=== PATIENT | female | born 1980 | race Caucasian/White ===

== ENCOUNTER 2019-01-21 16:15 | Inpatient (IN) ==
[2019-01-21] MEDS ORDERED: Isovue-370 500 ML BOTTLE IVP ONE (16:31)
--- NOTE | 2019-01-21 16:35 | Emergency Department Note ---
Disposition Clinical Impression: Acute anxiety Depression Qualifiers: Depression Type: other depression Qualified Code(s): F32.89 - Other specified depressive episodes Disposition: Admitted As Inpatient Condition: Fair Time of Disposition: 19:24 Psych HPI - General Stated Complaint: sent by 1A Time Seen by Provider: 01/21/19 16:19 Source: patient, other (Family) Mode of arrival: private vehicle Limitations: no limitations Nursing Notes Reviewed: Yes Vital Signs Reviewed: Yes - History of Present Illness HPI Narrative: Patient is tearful, depressed, anxious and "obsessed" over a recent chest x-ray showing groundglass opacities versus infiltrate. She is concerned about "swelling in my neck" that "popped up several weeks ago" and that might be malignant. She has been seen at [facility]'s emergency department and by her primary care provider and given reassurance. She contacted her friend today and explained her anxiety she was instructed to come to the emergency department. Patient requests a mental health consultation. Pt complaint: anxiety Onset (ago): week(s) Duration: intermittent History of similar episodes: No Improves with: none Worsens with: none Alleged intoxication: No Associated Psychiatric Symptoms: depression, anxiety Associated symptoms: Reports: other ("Swelling" in neck) Traumatic symptoms: denies traumatic injury Treatments prior to arrival: other All systems ED: reviewed and negative except as stated. Constitutional: Reports: as per HPI Eyes: Reports: as per HPI ENT ED: Reports: as per HPI Cardiovascular: Reports: as per HPI Respiratory: Reports: as per HPI Gastrointestinal: Reports: as per HPI Genitourinary: Reports: as per HPI Musculoskeletal: Reports: as per HPI Integumentary: Reports: as per HPI Neurological: Reports: as per HPI Psychiatric: Reports: anxiety, depression Endocrine: Reports: as per HPI Hematological/Lymphatic: Reports: lymphadenopathy Allergic/Immunologic: Reports: as per HPI Past Medical History - Past Medical History Source: patient - Social History Smoking Status: Current every day smoker Drug use: Reports: none Physical Exam tearful - General Limitations: no limitations General appearance: alert - Head Head exam: atraumatic - Eye Eye exam: Present: normal appearance - ENT ENT exam: normal exam - Neck Neck exam: Present: normal inspection, lymphadenopathy (right sided supraclavicular swelling) - Chest Chest inspection: Present: normal inspection, symmetric chest wall rise - Respiratory Respiratory exam: Present: normal lung sounds bilaterally - Cardiovascular Cardiovascular exam: Present: regular rate, normal rhythm - Rectal Exam Rectal exam: Present: deferred - Extremities Exam Extremities exam: Present: normal inspection - Neurological Exam Neurological exam: Present: alert, oriented X3, CN II-XII intact - Psychiatric Psychiatric exam: Present: anxious - Skin Skin exam: Present: warm, dry, intact Course Course Narrative: patient to ED feeling anxious. she is overly concerned about her "neck swelling." I did review the transcribed report of her CT neck and the transcribed report of her chest x-ray. I will offered further medical evaluation with a contrast-enhanced CT scan of her chest. I will attempt to clear her medically for mental health consultation Vital Signs Temperature 97.8 F 01/21/19 16:50 Pulse Rate 97 01/21/19 16:50 Respiratory Rate 18 01/21/19 16:50 Blood Pressure 149/89 01/21/19 16:50 O2 Sat by Pulse Oximetry 97 01/21/19 16:50 Temperature 97.8 F 01/21/19 16:50 Pulse Rate 97 01/21/19 16:50 Respiratory Rate 18 01/21/19 16:50 Blood Pressure 149/89 01/21/19 16:50 O2 Sat by Pulse Oximetry 97 01/21/19 16:50 Oxygen Delivery Oxygen Delivery Room Air Psych - Lab Data Result diagrams: 01/21/19 16:39 01/21/19 16:39 Lab Results 01/21/19 01/21/19 01/21/19 Range/Units 16:34 16:34 16:39 WBC 11.2 H (4.3-11.1) K/mcL RBC 4.61 (3.82-4.97) M/mcL Hgb 13.7 (11.5-15.4) g/dL Hct 42.1 (35.3-44.9) % MCV 91.3 (83.0-100.0) fL MCH 29.7 (28.0-33.3) pg MCHC 32.5 (31.6-35.5) g/dL RDW 13.2 (11.5-14.5) % Plt Count 425 H (140-400) K/mcL MPV 8.4 L (9.4-12.4) fL Immature Gran % 0.3 (0-4) % Seg Neutrophils % 67.4 % Lymphocytes % 24.0 % Monocytes % 5.6 % Eosinophils % 2.1 % Basophils % 0.6 % Neutrophils # 7.6 (1.6-8.9) K/mcL Lymphocytes # 2.7 (0.6-4.6) K/mcL Monocytes # 0.6 (0.0-1.3) K/mcL Eosinophils # 0.2 (0.0-0.6) K/mcL Basophils # 0.1 (0.0-0.2) K/mcL Sodium (136-145) mEq/L Potassium (3.5-5.1) mEq/L Chloride (98-107) mEq/L Carbon Dioxide (23-29) mEq/L BUN (6-20) mg/dL Creatinine (0.60-1.20) mg/dL Est GFR ( Amer) (> 60) Est GFR (Non-Af Amer) (> 60) BUN/Creatinine Ratio (6-26) Glucose (70-105) mg/dL Calculated Osmolality (280-300) Calcium (8.6-10.3) mg/dL Urine Test Negative (Negative) Salicylates (15.0-30.0) mg/dL Urine Opiates Screen Negative (Jzkzdh=838) ng/mL Ur Buprenorphine Scrn Negative (Cutoff=5) ng/mL Acetaminophen (10-20) mcg/mL Ur Barbiturates Screen Negative (Sbunqv=129) ng/mL Ur Phencyclidine Scrn Negative (Cutoff=25) ng/mL Ur Amphetamines Screen Negative (Dtbwnh=8996) ng/mL U Benzodiazepines Scrn Negative (Hqormm=043) ng/mL Urine Cocaine Screen Negative (Cutoff= 300) ng/mL U Marijuana (THC) Screen Negative (Cutoff = 50) ng/mL Ur Drug Screen Interp See Below Ethyl Alcohol (Less than 10) mg/dL 01/21/19 Range/Units 16:39 WBC (4.3-11.1) K/mcL RBC (3.82-4.97) M/mcL Hgb (11.5-15.4) g/dL Hct (35.3-44.9) % MCV (83.0-100.0) fL MCH (28.0-33.3) pg MCHC (31.6-35.5) g/dL RDW (11.5-14.5) % Plt Count (140-400) K/mcL MPV (9.4-12.4) fL Immature Gran % (0-4) % Seg Neutrophils % % Lymphocytes % % Monocytes % % Eosinophils % % Basophils % % Neutrophils # (1.6-8.9) K/mcL Lymphocytes # (0.6-4.6) K/mcL Monocytes # (0.0-1.3) K/mcL Eosinophils # (0.0-0.6) K/mcL Basophils # (0.0-0.2) K/mcL Sodium 138 (136-145) mEq/L Potassium 3.6 (3.5-5.1) mEq/L Chloride 100 (98-107) mEq/L Carbon Dioxide 25 (23-29) mEq/L BUN 9 (6-20) mg/dL Creatinine 0.79 (0.60-1.20) mg/dL Est GFR ( Amer) > 60 (> 60) Est GFR (Non-Af Amer) > 60 (> 60) BUN/Creatinine Ratio 11 (6-26) Glucose 113 H (70-105) mg/dL Calculated Osmolality 285 (280-300) Calcium 10.1 (8.6-10.3) mg/dL Urine Test (Negative) Salicylates < 2.5 L (15.0-30.0) mg/dL Urine Opiates Screen (Sczlor=158) ng/mL Ur Buprenorphine Scrn (Cutoff=5) ng/mL Acetaminophen < 10 L (10-20) mcg/mL Ur Barbiturates Screen (Ubhmde=276) ng/mL Ur Phencyclidine Scrn (Cutoff=25) ng/mL Ur Amphetamines Screen (Gdqgrq=7175) ng/mL U Benzodiazepines Scrn (Nyyhvk=325) ng/mL Urine Cocaine Screen (Cutoff= 300) ng/mL U Marijuana (THC) Screen (Cutoff = 50) ng/mL Ur Drug Screen Interp Ethyl Alcohol < 10 (Less than 10) mg/dL Psychiatric Medical Clearance - Medical Clearance Checklist Medical History: No Social History Section defined Current Vitals: Last Vital Signs Temp 97.8 F 01/21/19 16:50 Pulse 97 01/21/19 16:50 Resp 18 01/21/19 16:50 BP 149/89 01/21/19 16:50 Pulse Ox 97 01/21/19 16:50 Psychiatric Lab Panel: Drug Levels and Toxicity 01/21/19 01/21/19 16:34 16:39 Urine Opiates Screen Negative Acetaminophen < 10 L Ur Barbiturates Screen Negative Ur Phencyclidine Scrn Negative Ur Amphetamines Screen Negative U Benzodiazepines Scrn Negative Urine Cocaine Screen Negative U Marijuana (THC) Screen Negative Ethyl Alcohol < 10 Abnormal Labs: Abnormal lab results WBC 11.2 K/mcL (4.3-11.1) H 01/21/19 16:39 Plt Count 425 K/mcL (140-400) H 01/21/19 16:39 MPV 8.4 fL (9.4-12.4) L 01/21/19 16:39 Glucose 113 mg/dL (70-105) H 01/21/19 16:39 Salicylates < 2.5 mg/dL (15.0-30.0) L 01/21/19 16:39 Acetaminophen < 10 mcg/mL (10-20) L 01/21/19 16:39 Statement of Medical Clearance: I have evaluated the patient, reviewed diagnostic information, and certify that the patient's medical condition is sufficiently stable that transfer to the psychiatric unit does not pose a significant risk of deterioration.
[2019-01-21 16:52] LABS: Basophils # 0.1 K/mcL (0.0-0.2); Basophils % 0.6 %; Eosinophils # 0.2 K/mcL (0.0-0.6); Eosinophils % 2.1 %; Hematocrit 42.1 % (35.3-44.9); Hemoglobin 13.7 g/dL (11.5-15.4); Immature Granulocytes % 0.3 % (0-4); Lymphocytes # 2.7 K/mcL (0.6-4.6); Mean Corpuscular HGB Conc 32.5 g/dL (31.6-35.5); Mean Corpuscular Hemoglobin 29.7 pg (28.0-33.3); Mean Corpuscular Volume 91.3 fL (83.0-100.0); Mean Platelet Volume 8.4 fL (9.4-12.4); Monocytes # 0.6 K/mcL (0.0-1.3); Monocytes % 5.6 %; Neutrophils # 7.6 K/mcL (1.6-8.9); Platelet Count 425 K/mcL (140-400); Red Blood Count 4.61 M/mcL (3.82-4.97); Red Cell Distribution Width 13.2 % (11.5-14.5); Segmented Neutrophils % 67.4 %; White Blood Count 11.2 K/mcL (4.3-11.1)
[2019-01-21 16:53] LABS: Amphetamine Screen,Urine Negative ng/mL (Cutoff=1000); Barbiturate Screen,Urine Negative ng/mL (Cutoff=200); Benzodiazepines Screen,Urine Negative ng/mL (Cutoff=200); Cannabinoid Screen,Urine Negative ng/mL (Cutoff = 50); Cocaine Screen,Urine Negative ng/mL (Cutoff= 300); Opiate Screen,Urine Negative ng/mL (Cutoff=300); Phencyclidine Screen,Urine Negative ng/mL (Cutoff=25)
[2019-01-21 17:12] LABS: Acetaminophen < 10 mcg/mL (10-20); BUN/Creatinine Ratio 11 (6-26); Blood Urea Nitrogen 9 mg/dL (6-20); Calcium 10.1 mg/dL (8.6-10.3); Carbon Dioxide 25 mEq/L (23-29); Chloride 100 mEq/L (98-107); Ethanol < 10 mg/dL (Less than 10); Glucose 113 mg/dL (70-105); Osmolality,Calculated 285 (280-300); Potassium 3.6 mEq/L (3.5-5.1); Salicylate < 2.5 mg/dL (15.0-30.0); Sodium 138 mEq/L (136-145); eGFR For African Americans > 60 (> 60); eGFR For Non-African Americans > 60 (> 60)
[2019-01-21] MEDS ORDERED: Haloperidol Lactate 5 MG/ML VIAL IM PRN (19:52)
[2019-01-21] MEDS ORDERED: hydrOXYzine pamoate 25 MG CAPSULE PO PRN (19:52)
[2019-01-21] MEDS ORDERED: MOM Conc 10 ML UD.LIQ PO PRN (19:52)
[2019-01-21] MEDS ORDERED: *HR* LORazepam 2 MG/ML VIAL IM PRN (19:52)
[2019-01-21] MEDS ORDERED: Mag Hydrox/Al Hydrox/Simeth 30 ML UDC PO PRN (19:52)
[2019-01-21] MEDS ORDERED: *HR* LORazepam 1 MG TABLET PO PRN (19:52)
[2019-01-21] MEDS ORDERED: traZODone 50 MG TABLET PO PRN (19:52)
[2019-01-21] MEDS: Ibuprofen 400 MG TABLET PO PRN (21:39)
[2019-01-22] MEDS: Nicotine 2 MG GUM BC PRN ×2 (07:36→17:24)
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
[2019-01-22] MEDS: clonazePAM 1 MG TABLET PO SCH (09:40)
[2019-01-22] MEDS: Ibuprofen 400 MG TABLET PO PRN ×2 (10:13→21:02)
--- NOTE | 2019-01-23 08:42 | Psychiatry Progress Note ---
Date of Encounter: 01/23/19 Time of Encounter: 08:00 Subjective Interval history: Patient had some stomach cramps yesterday. She is unsure if it is related to the medication changes however she also had some salad which has previously bothered other patients. She reports ongoing anxiety and obsessive thinking. She said that she read the PDR for the new medication which she maintained speech should not have because she said that she then dwelled on the possible side effects. She said she misses her children. She denies suicidal or homicidal thoughts ideations or plans. Review of Systems Psychiatric: Reports: depression, anxiety, abnormal sleep pattern, anhedonia Results - Vital Signs Vital Signs: Temp Pulse Resp BP Pulse Ox 98.6 F 71 16 138/76 99 01/22/19 20:36 01/22/19 20:36 01/22/19 20:36 01/22/19 20:36 01/22/19 20:36 - Impressions ITS Impressions Chest CT 01/21/19 16:31 IMPRESSION: 1. No acute cardiopulmonary process. 2. No mediastinal masses or supraclavicular masses are identified to explain the clinical symptoms. No abnormality is seen causing mass effect on the SVC. D/ / Kai Bernabe MD / Kai Bernabe MD Interpreting Provider: Kai Bernabe MD Assessment and Plan (1) Obsessive compulsive disorder Current visit: Yes Status: Acute Plan: Continue hospitalization, Close observation, Suicide Precautions per unit protocol, Encourage participation in unit milieu, Group Therapy, Monitor sleep, Monitor appetite Additional Plan: Continued cross titration of medications. Will drop Paxil by 20 mg and increase fluvoxamine by 50 mg. Encourage group attendance. Risks, benefits, side effects, alternatives discussed w/pt: Yes Patient agreeable to treatment: Yes Qualifiers: Obsessive-compulsive disorder type: mixed obsessional thoughts and acts Qualified Code(s): F42.2 - Mixed obsessional thoughts and acts (2) Posttraumatic stress disorder Current visit: Yes Status: Acute Consult Discharge Plan - Plan Psychiatry Exam - Constitutional Vitals: Temp Pulse Resp BP Pulse Ox 98.6 F 71 16 138/76 99 01/22/19 20:36 01/22/19 20:36 01/22/19 20:36 01/22/19 20:36 01/22/19 20:36 General appearance: age & developmentally appropriate - Musculoskeletal Gait: slow Station: stooped Strength & Tone: normal for patient - Psychiatric Patient Orientation: Yes Person, Yes Time, Yes Place, Yes Circumstance Level of alertness: Alert Behavior: anxious Psychomotor activity: Normal Eye Contact: Minimal Contact Mood Description: Anxious Patient description of mood: Worried Affect description: congruent with mood Speech Volume: Normal Speech pattern: normal rate, normal rhythm, normal tone, fluent, spontaneous Language & Vocabulary: consistent with education Thought Process: Linear, Goal Oriented Thought Content: No Suicidal ideation, No Homicidal ideation, No Overt delusions Perceptual Disturbances: No Auditory hallucinations, No Visual hallucinations Attention Span Ability: Capable of Focused Attention Memory Description: Grossly Intact Patient Reliability: Reliable Historian Fund of knowledge: Yes abstraction ability, Yes aware of current events Intelligence Estimate: Average Judgment: Limited Insight: Partial
[2019-01-23] MEDS: clonazePAM 1 MG TABLET PO SCH (09:04)
[2019-01-23] MEDS: Nicotine 2 MG GUM BC PRN ×2 (09:04→21:20)
[2019-01-23] MEDS: Ibuprofen 400 MG TABLET PO PRN ×2 (11:38→21:20)
[2019-01-24] MEDS: clonazePAM 1 MG TABLET PO SCH (08:37)
[2019-01-24] MEDS: Nicotine 2 MG GUM BC PRN (08:39)
[2019-01-24 10:11] VITALS: BP 115/77
--- NOTE | 2019-01-24 10:11 | Discharge Summary ---
Date of Encounter: 01/24/19 Time of Encounter: 10:08 Diagnosis - Discharge Diagnosis (1) Obsessive compulsive disorder Status: Acute Qualifiers: Obsessive-compulsive disorder type: mixed obsessional thoughts and acts Qualified Code(s): F42.2 - Mixed obsessional thoughts and acts (2) Posttraumatic stress disorder Status: Acute Medications - Discharge Medications Prescriptions: fluvoxaMINE [Luvox] 100 mg PO QAM #30 tablet hydrOXYzine pamoate [Vistaril] 25 mg PO TID PRN #90 capsule PRN Reason: Anxiety Omeprazole [PriLOSEC] 20 mg PO DAILY 01/22/19 [History] clonazePAM [Klonopin] 1 mg PO QAM tablet 01/24/19 [Rx] fluvoxaMINE [Luvox] 100 mg PO QAM #30 tablet 01/24/19 [Rx] hydrOXYzine pamoate [Vistaril] 25 mg PO TID PRN #90 capsule 01/24/19 [Rx] Allergy/AdvReac Type Severity Reaction Status Date / Time No Known Allergies Allergy Verified 01/22/19 15:39 Results Procedures and tests throughout hospitalization: Completed Lab Orders Category Date Time Status Acetaminophen Stat Lab 01/21/19 16:39 Completed Basic Metabolic Panel Stat Lab 01/21/19 16:39 Completed Complete Blood Count [HEME] Stat Lab 01/21/19 16:39 Completed Drug Screen, Urine [UCHEM] Stat Lab 01/21/19 16:34 Completed Ethanol Stat Lab 01/21/19 16:39 Completed Test Result, Urine [URIN] Stat Lab 01/21/19 16:34 Completed Salicylate Stat Lab 01/21/19 16:39 Completed Completed Imaging Orders Category Date Time Status CT chest w con [CT] Stat Cat Scan 01/21/19 16:31 Completed Provider Date of admission: 01/21/19 19:29 Primary care physician: PCP NONE Discharging clinician: Fabiana Samayoa Psychiatry Exam - Constitutional Vitals: Temp Pulse Resp BP Pulse Ox 97.8 F 75 16 132/76 99 01/23/19 21:00 01/23/19 21:00 01/23/19 21:00 01/23/19 21:00 01/23/19 21:00 General appearance: age & developmentally appropriate, well-groomed, well- nourished - Musculoskeletal Gait: normal Station: relaxed Strength & Tone: normal for patient - Psychiatric Patient Orientation: Yes Person, Yes Time, Yes Place Level of alertness: Alert Behavior: calm, cooperative Psychomotor activity: Normal Eye Contact: Maintains Eye Contact Mood Description: Anxious Affect description: congruent with mood Speech Volume: Normal Speech pattern: normal rate, normal rhythm, normal tone, fluent, spontaneous Language & Vocabulary: consistent with education Thought Process: Linear, Goal Oriented Thought Content: No Suicidal ideation, No Homicidal ideation, No Overt delusions Perceptual Disturbances: No Auditory hallucinations, No Visual hallucinations Attention Span Ability: Capable of Focused Attention Memory Description: Grossly Intact Patient Reliability: Reliable Historian Fund of knowledge: Yes abstraction ability, Yes aware of current events Intelligence Estimate: Average Judgment: Fair Insight: Partial Hospital Course Hospital course: Ms. Black is a 38 year old female who was admitted secondary to anxiety from OCD and PTSD. Had been taking Paxil since the age of 14y/o and likely had tachyphylaxis from it. Was started on Luvox and Klonopin with good clinical effect. Paxil was titrated down and Luvox was titrated up. Today client is denying SI/HI/AH/VH. States at no point did she have suicidal ideation, plan, or intent. Tends to be somatically preoccupied and actually has an intense fear of dying or having something wrong with her. Fears take on a delusional quality at times. However, client states her fears are less intense now. Started seeing a counselor at [facility] a couple of months ago and has a follow up appointment today. May benefit from a partial hospitalization program down the road if somatic preoccupations return/intensify but for now client feels good. Sleeping and eating well. Bright, reactive, and future oriented. Total time spent with client greater than 30 minutes. Patient was educated of her diagnosis and the risks, benefits, and side effects of this treatment and alternative treatment options and was monitored for responsiveness and side effects. Mood, anxiety, sleep, appetite, and interest improved, as did future orientation. Self-harm thoughts subsided, thinking cleared, psychosis resolved, and mood stabilized. Patient was able to attend both individual and group therapy sessions as well as meeting with the psychiatrist daily and urged to discuss any medication or treatment issues or other concerns. The patient was educated primarily by verbal means about their diagnosis and manifestations in their life. The option for treatment including group and individual therapy programming was offered to the patient in the use of medications with all their potential risks, benefits, and side effects were discussed with the patient at length. The patient was given the opportunity to ask questions and was noted to participate in the treatment in the planning process. The patient felt ready and eager to be discharged from the inpatient psychiatric unit to continue on with treatment as an outpatient. The patient agreed that she is safe for this disposition. The patient was considered to be able to participate in informed consent and decision making with respect to medical, legal, and financial issues of the time of discharge. At the time of discharge the patient adamantly denied any concerns for lethality including suicidal or homicidal thoughts ideations or plans and was future oriented toward ongoing mental health care, medical follow-up and sobriety. - Time Spent with Patient Total time spent providing and/or coordinating discharge services: Greater than 30 minutes Assessment and Plan - Patient/Caregiver Discharge Instructions Activity: resume usual activities as tolerated Diet: regular diet Additional Instructions: Tomorrow morning (01/25/19) take Paxil 15mg along with prescribed Luvox and Klonopin. The following morning (01/26/19) stop the Paxil and just continue with the Luvox and Klonopin. If needed medication dosages can be adjusted on an outpatient basis. - Follow up Plan Follow up with: NONE,PCP [Primary Care Provider] - Functional capacity at discharge: independent ambulation Overall status at discharge: Stable Disposition: Home, Self-Care Quality - Multiple Antipsychotics Patient discharged on 2 or more antipsychotic medications: No Procedures - Procedures Procedures: Medication Management, Crisis Stabilization, Supportive Therapy, Group Therapy
== END 2019-01-24 12:11 | disposition home or self-care (01) | DRG 755 ==
LOC: EMEROOARM 16:15 → 1ANU 19:29
PROVIDERS: ADMIT Psychiatry & Neurology Psychiatry; ATTEND Psychiatry & Neurology Psychiatry